=== PATIENT | female | born 1965 | race Two or more races ===

== ENCOUNTER 2019-02-07 09:57 | Outpatient (CLI) | payer OTHER ==
[~2019-02-07 09:57] MED LIST: DURICEF 500 MG PO; LOTRISONE LOTIO30 ML TP
== END 2019-02-07 10:07 | disposition home or self-care (01) ==
LOC: SONOGRAMA 09:57
DX: E03.8 Other specified hypothyroidism (principal); I10 Essential (primary) hypertension; M54.5 Low back pain; Z01.810 Encounter for preprocedural cardiovascular examination

== ENCOUNTER 2019-07-26 12:50 | Outpatient (CLI) | payer OTHER | END 2019-07-26 13:03 | disposition home or self-care (01) | LOC: RAD 12:50 | DX: M54.5 Low back pain (principal); I10 Essential (primary) hypertension; E03.8 Other specified hypothyroidism; M35.8 Other specified systemic involvement of connective tissue; M51.06 Intervertebral disc disorders with myelopathy, lumbar region; M99.03 Segmental and somatic dysfunction of lumbar region ==

== ENCOUNTER 2019-07-27 09:30 | Outpatient (CLI) | payer OTHER | END 2019-07-27 09:38 | disposition home or self-care (01) | LOC: RAD 09:30 | DX: R07.81 Pleurodynia (principal) ==

== ENCOUNTER 2021-03-27 11:50 | Outpatient (CLI) | payer OTHER | END 2021-03-27 12:05 | disposition home or self-care (01) | LOC: PPH VACUNA 11:50 | PROVIDERS: ATTEND Emergency Medicine Pediatric Emergency Medicine | DX: Z23 Encounter for immunization (principal) ==

== ENCOUNTER 2023-08-02 08:59 | Emergency (ER) | payer OTHER ==
[~2023-08-02] VITALS: Ht 149.9 cm; Wt 61.2 kg
[2023-08-02] MEDS ORDERED: 0.9 % SODIUM CHLORIDE 1,000 ML IV STA (09:50)
[2023-08-02] MEDS ORDERED: FAMOtidine 10 MG/ML (4ML VIAL) IV STA (09:50)
[2023-08-02] MEDS ORDERED: ONDANSETRON HCL 2 MG/ML VIAL IV STA (09:51)
[2023-08-02 10:57] LABS: HEMATOCRIT 40.6 % (36.0-45.00); HEMOGLOBIN 13.9 g/dL (12.0-15.00); MEAN CELL VOLUME 90.1 fL (80.00-100.00); MEAN CORPUSCULAR HEMOGLOBIN 30.7 pg (27.00-32.0); MEAN CORPUSCULAR HGB CONC 34.1 g/dl (32.0-36.0); PLATELET COUNT 235 K/uL (150-450); RED BLOOD COUNT 4.51 M/uL (4.00-6.00)
[2023-08-02 11:01] LABS: PH,URINE 7.5 (5.0-8.0); URINE APPEARANCE Clear; URINE BILIRRUBIN Negative (NEGATIVE); URINE BLOOD Negative; URINE COLOR Yellow; URINE GLUCOSE Negative (NEGATIVE); URINE LEUKOCYTE Negative; URINE NITRATE Negative; URINE PROTEIN Negative (NEGATIVE); URINE UROBILINOGEN 0.2 E.U./dl
[2023-08-02 11:04] LABS: URINE EPITHELIAL CELLS 5.7 uL (0.0-38.8)
[2023-08-02 11:12] LABS: URINE BACTERIA 0 uL (0.0-1933); URINE RBC 0.7 uL (0.0-20.8); URINE WBC 1.3 uL (0.0-23.2)
[2023-08-02 11:27] LABS: CALCIUM 8.9 mg/dL (8.5-10.1); CREATININE SERUM 0.62 mg/dL (0.55-1.02); GFR 98.86; POTASSIUM 4.32 mEq/L (3.5-5.1)
== END 2023-08-02 14:57 | disposition home or self-care (01) ==
LOC: ER
PROVIDERS: General Practice
DX: K52.89 Other specified noninfective gastroenteritis and colitis (principal); R10.9 Unspecified abdominal pain; J45.909 Unspecified asthma, uncomplicated; Z91.013 Allergy to seafood; Z20.822 Contact with and (suspected) exposure to COVID-19; K59.00 Constipation, unspecified